=== PATIENT | female | born 1965 | race African-American/Black ===

== ENCOUNTER 2025-04-01 15:15 | Outpatient (CLI) | payer OTHER, SELFPAY ==
--- NOTE | ~2025-04-01 | XR_ITS ---
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 Findings: No acute fracture or malalignment. No significant degenerative changes. Soft tissues unremarkable. Impression: No acute fracture or malalignment. Reviewed, dictated and finalized at location P. NT[employer] RESEARCH ASSOCIATE Impression: No acute fracture or malalignment.
== END 2025-04-01 15:16 | disposition home or self-care (01) ==
LOC: MICIMG 15:22
PROVIDERS: PCP Family Medicine; Visit Provider Family Medicine
DX: M70.61 Trochanteric bursitis, right hip (principal)
CPT/HCPCS: 73502